=== PATIENT | male | born 1975 | race Hispanic/Latino ===

== ENCOUNTER 2025-03-17 07:13 | Day surgery (SDC) | payer MEDICAID ==
[~2025-03-17] VITALS: Ht 162.6 cm; Wt 86.6 kg
[2025-03-17] VITALS (10 sets, daily range): BP systolic 151–194; BP diastolic 73–97; PULSE 79–107; RESP 15–18; TEMP 97.5–98.6
[2025-03-17] MEDS ORDERED: SEVE0.8P PO (09:02)
[2025-03-17] MEDS ORDERED: FAMO40TA7 PO (09:02)
[2025-03-17] MEDS ORDERED: OMEP40CA21 PO (09:02)
[2025-03-17] MEDS ORDERED: LOSA50TA64 PO (09:02)
[2025-03-17] MEDS ORDERED: HYDR25TA67 PO (09:02)
[2025-03-17] MEDS ORDERED: SODI10PO2 PO (09:02)
[2025-03-17] MEDS ORDERED: FOLI0.8T22 PO (09:02)
[2025-03-17] MEDS ORDERED: METO10TA8 PO (09:02)
[2025-03-17] MEDS ORDERED: CINA30TA5 PO (09:02)
[2025-03-17] MEDS ORDERED: TORS100T16 PO (09:02)
[2025-03-17] MEDS: 0.9%NACL 1000ML 1,000 ML IV ONE (09:05)
[2025-03-17] MEDS ORDERED: LIDOCAINE HCL 1% 20 ML VIAL ONE (09:34)
== END 2025-03-17 11:17 | disposition home or self-care (01) ==
LOC: DAH 07:13
PROVIDERS: ATTEND Internal Medicine Gastroenterology
DX: D50.9 Iron deficiency anemia, unspecified (principal); K29.70 Gastritis, unspecified, without bleeding; K57.30 Diverticulosis of large intestine without perforation or abscess without bleeding; K31.89 Other diseases of stomach and duodenum; R63.4 Abnormal weight loss; R10.10 Upper abdominal pain, unspecified; I10 Essential (primary) hypertension; K44.9 Diaphragmatic hernia without obstruction or gangrene; E11.9 Type 2 diabetes mellitus without complications; Z99.2 Dependence on renal dialysis; Z79.899 Other long term (current) drug therapy
CPT/HCPCS: 82948 ×2; 43239; 45380; J7030 ×2; J2704 ×2; J2405; A4620; A4215; A4223; A7002; A4222; A4221; A4663; A4606; J3490